=== PATIENT | female | born 1965 | race African-American/Black ===

== ENCOUNTER 2016-09-12 16:34 | Emergency (ER) | payer BC, OTHER ==
[2016-09-12 16:39] VITALS: BP 124/81; PULSE 82; TEMP 98.3; BMI 26.5
[2016-09-12] MEDS ORDERED: ALBUTEROL SO4 2.5/IPRATROPIUM 0.5 INH SOL 3 ML VIAL.NEB. NEB ONE ×2 (17:16→17:18)
--- NOTE | 2016-09-12 17:32 | PDOC ---
[id number] WORSENING PRODUCTIVE COUGH/CHEST PAIN Time Seen by Provider: 09/12/16 16:42 History Source: Patient Exam Limitations: No Limitations - History of Present Illness Initial Comments: 09/12/16 17:30 c/o cough for 2 weeks getting worse ran out of asthma inhaler. no shortness of breath c/o pain to middle of chest with coughing. no fever or chills. no sick contacts. Timing/Duration: reports: week (2) Severity: reports: mild Past History - Past Medical History Allergies/Adverse Reactions: Allergies Allergy/AdvReac Type Severity Reaction Status Date / Time No Known Drug Allergies Allergy Verified 09/12/16 16:36 Home Medications: Ambulatory Orders No Home Medications 0 dose .ROUTE UTDICT 11/05/12 Albuterol Sulfate Inhaler - [Ventolin Hfa Inhaler -] 1 - 2 inh PO Q4H #1 inhaler 09/12/16 Azithromycin [Zithromax 250mg Tablets -] 250 mg PO UTDICT #6 tab 09/12/16 Prednisone [Deltasone -] 40 mg PO DAILY #10 tablet 09/12/16 Anemia: No Asthma: Yes Cancer: No Cardiac Disorders: No CVA: No COPD: No CHF: No Dementia: No Diabetes: No GI Disorders: No Disorders: No HTN: No Hypercholesterolemia: No Liver Disease: No Seizures: No Thyroid Disease: No - Surgical History Abdominal Surgery: No Appendectomy: No Cardiac Surgery: No Cholecystectomy: No Lung Surgery: No Neurologic Surgery: No Orthopedic Surgery: No - Immunization History Td Vaccination: Yes Immunization Up to Date: Yes - Psycho/Social/Smoking Cessation Hx Anxiety: No Suicidal Ideation: No Smoking Status: No Smoking History: Never smoked Number of Cigarettes Smoked Daily: 0 Hx Alcohol Use: No Drug/Substance Use Hx: No Substance Use Type: None Hx Substance Use Treatment: No Respiratory Specific PMHX - Complaint Specific PMHX Angina: No Pneumonia: No Review of Systems - Review of Systems Able to Perform ROS?: Yes Is the patient limited Turkmen proficient: No Constitutional: No: Symptoms Reported Respiratory: Yes: Cough *Physical Exam - Vital Signs Last Vital Signs Temp Pulse Resp BP Pulse Ox 98.3 F 82 19 124/81 98 09/12/16 16:36 09/12/16 16:36 09/12/16 16:36 09/12/16 16:36 09/12/16 16:36 - Physical Exam General Appearance: Yes: Nourished, Appropriately Dressed HEENT: positive: EOMI, IRA, Normal ENT Inspection, TMs Normal, Pharynx Normal Neck: positive: Supple. negative: Tender Respiratory/Chest: positive: Decreased Breath Sounds. negative: Rhonchi, Wheezing Cardiovascular: positive: Regular Rhythm, Regular Rate Gastrointestinal/Abdominal: positive: Normal Bowel Sounds, Soft Musculoskeletal: positive: Normal Inspection Extremity: positive: Normal Capillary Refill, Normal Inspection, Normal Range of Motion Integumentary: positive: Normal Color, Dry, Warm Neurologic: positive: Fully Oriented, Alert, Normal Mood/Affect, Normal Response , Motor Strength 09/27 ED Treatment Course - RADIOLOGY Radiology Studies Ordered: Category Date Time Status CHEST PA & LAT [RAD] Stat Radiology 09/12/16 16:43 Taken - Medications Given in the ED: ED Medications Discontinued Medications Generic Name Dose Route Start Last Admin Trade Name Freq PRN Reason Stop Dose Admin Albuterol/Ipratropium 1 amp 09/12/16 17:16 09/12/16 17:27 Duoneb - NEB 09/12/16 17:17 1 amp ONCE ONE Administration Medical Decision Making - Medical Decision Making 09/12/16 17:32 cc: cough 2 weeks getting worse will give duoneb, cxr 09/12/16 18:53 pt improved after the duoneb inhaler cxr is negative for pneumonia follow up with PMD as discussed meds given as discussed *DC/Admit/Observation/Transfer Diagnosis at time of Disposition: Bronchitis - Discharge Dispostion Disposition: HOME Condition at time of disposition: Good - Prescriptions Prescriptions: Prednisone [Deltasone -] 40 mg PO DAILY #10 tablet Albuterol Sulfate Inhaler - [Ventolin Hfa Inhaler -] 1 - 2 inh PO Q4H #1 inhaler Azithromycin [Zithromax 250mg Tablets -] 250 mg PO UTDICT #6 tab - Referrals Referrals: Noé Morris MD [Primary Care Provider] - - Patient Instructions Printed Discharge Instructions: DI for Acute Bronchitis Additional Instructions: drink pleanty of fluids to stay hydrated take the medications as prescribed follow with your doctor in 3-4 days Return if any worsening symptoms
--- NOTE | 2016-09-16 12:18 | EKG ---
Test Reason : Blood Pressure : / mmHG Vent. Rate : 075 BPM Atrial Rate : 075 BPM P-R Int : 148 ms QRS Dur : 082 ms QT Int : 382 ms P-R-T Axes : 070 014 027 degrees QTc Int : 426 ms NORMAL SINUS RHYTHM POSSIBLE LEFT ATRIAL ENLARGEMENT BORDERLINE ECG WHEN COMPARED WITH ECG OF 20-FEB-2015 17:35, NO SIGNIFICANT CHANGE WAS FOUND Confirmed by TK HOLDEN MD ([id number]) on 09/16/2016 12:18:02 PM Referred By: Confirmed By:TK HOLDEN MD
== END 2016-09-12 17:42 | disposition home or self-care (01) ==
LOC: JERFT 16:34
PROC: 3E0F7GC Introduction of Other Therapeutic Substance into Respiratory Tract, Via Natural or Artificial Opening (ICD-10-PCS; principal; 2016-09-12)
DX: J40 Bronchitis, not specified as acute or chronic (principal)
CPT/HCPCS: 71020-TC; 93005; 93010; 99281-25

== ENCOUNTER 2016-11-05 16:32 | Emergency (ER) | payer BC, OTHER ==
[2016-11-05] MEDS ORDERED: DIPHTH,PERTUSS(ACELL),TET 0.5 ML DISP.SYRIN IM ONE (16:46)
[2016-11-05 16:47] VITALS: BP 134/84; PULSE 89; TEMP 98.1; BMI 28.3
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
[2016-11-05] MEDS ORDERED: SILVER SULFADIAZINE 1% TOP CREAM 50 GM JAR TP ONE (17:12)
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
== END 2016-11-05 17:48 | disposition home or self-care (01) ==
LOC: JERFT 16:32
PROC: 2W2QX4Z Dressing of Right Lower Leg using Bandage (ICD-10-PCS; principal; 2016-11-05)
PROC: 3E0234Z Introduction of Serum, Toxoid and Vaccine into Muscle, Percutaneous Approach (ICD-10-PCS; 2016-11-05)
DX: T24.231A Burn of second degree of right lower leg, initial encounter (principal); T31.0 Burns involving less than 10% of body surface; X19.XXXA Contact with other heat and hot substances, initial encounter; Y93.89 Activity, other specified; Y92.9 Unspecified place or not applicable
CPT/HCPCS: 90715; 99281-25

== ENCOUNTER 2017-09-15 16:46 | Emergency (ER) | payer BC, OTHER ==
--- NOTE | 2017-09-15 17:10 | PDOC ---
Rapid Medical Evaluation Time Seen by Provider: 09/15/17 17:06 Medical Evaluation: Allergies Allergy/AdvReac Type Severity Reaction Status Date / Time No Known Drug Allergies Allergy Verified 09/15/17 17:05 09/15/17 17:06 I have performed a brief in-person evaluation of this patient. The patient presents with a chief complaint of: L neck pain since yesterday, L hand tingling, dypsnea on exertion, "a little chest pain walking over here", epigastric discomfort, "feels like my food won't digest well", "i went to work today and everyone noticed something was wrong with me" Pertinent physical exam findings: limited flexion to neck I have ordered the following: ekg, labs The patient will proceed to the ED for further evaluation. Discharge Disposition - Diagnosis Shortness of breath - Referrals Referrals: Noé Morris MD [Primary Care Provider] - - Patient Instructions - Post Discharge Activity
[2017-09-15 17:12] VITALS: TEMP 98; BMI 31.2
[2017-09-15 18:02] LABS: BASO % 0.6 % (0-2.0); EOS % 2.8 % (0-4.5); HEMATOCRIT 37.1 % (32.4-45.2); HEMOGLOBIN 12.5 GM/dL (10.7-15.3); LYMPH % 26.7 % (8-40); MCH 27.3 pg (25.7-33.7); MCHC 33.7 g/dl (32.0-36.0); MONO % 9.8 % (3.8-10.2); NEUT % 60.1 % (42.8-82.8); PLATELET COUNT 339 K/MM3 (134-434); RBC 4.58 M/mm3 (3.60-5.2); RDW 15.4 % (11.6-15.6); WHITE BLOOD COUNT 6.7 K/mm3 (4.0-10.0)
[2017-09-15 18:35] LABS: INR 1.04 (0.82-1.09); PROTHROMBIN TIME (PATIENT) 11.7 SEC (9.7-13.0)
[2017-09-15 18:37] LABS: ALBUMIN 3.7 g/dl (3.4-5.0); ANION GAP 5 (8-16); BLOOD UREA NITROGEN 22 mg/dL (7-18); CALCIUM 9.1 mg/dL (8.5-10.1); CHLORIDE 108 mmol/L (98-107); CO2 29 mmol/L (21-32); CREATININE 0.8 mg/dL (0.55-1.02); GLUCOSE,RANDOM 91 mg/dL (74-106); POTASSIUM 3.9 mmol/L (3.5-5.1); SGOT/AST 17 U/L (15-37); SGPT/ALT 23 U/L (12-78); SODIUM 142 mmol/L (136-145)
[2017-09-15 18:41] LABS: ALK PHOS 92 U/L (45-117); BILIRUBIN,TOTAL 0.2 mg/dL (0.2-1.0); TOT PROT 7.7 g/dl (6.4-8.2)
[2017-09-15 18:43] LABS: MAGNESIUM 2.1 mg/dL (1.8-2.4)
[2017-09-15 18:44] LABS: N-TERMINAL BNP 55.24 pg/ml (5-125)
[2017-09-15] MEDS ORDERED: ASPIRIN 81 MG CHEWABLE TABLETS PO ONE (18:57)
--- NOTE | 2017-09-15 19:07 | PDOC ---
History of Present Illness - General Chief Complaint: Chest Pain Stated Complaint: Neck problem Time Seen by Provider: 09/15/17 17:06 History Source: Patient Exam Limitations: No Limitations - History of Present Illness Initial Comments: 09/15/17 19:00 51-year-old female history of lower back disc disease here today complaining of left upper extremity tingling and upper neck pain. Patient denies any new weakness was coming to be seen for the arm and did notice that she developed some chest pain while walking. Denies any associated shortness breath no nausea vomiting or diaphoresis. Unsure if she has had a previous cardiac workup states she may have had some tests done 2 years ago unsure what type. No family history of heart disease patient does not have a history of hypertension diabetes no tobacco use upper extremity pain and tingling she has had for several days and is worse with certain movements and lifting his pain is since resolved no leg swelling no history of DVT or PE she has had several negative ultrasound Dopplers in the past Past History - Past Medical History Allergies/Adverse Reactions: Allergies Allergy/AdvReac Type Severity Reaction Status Date / Time No Known Drug Allergies Allergy Verified 09/15/17 17:05 Home Medications: Ambulatory Orders NK [No Known Home Medication] 11/05/16 Anemia: No Asthma: Yes Cancer: No Cardiac Disorders: No CVA: No COPD: No CHF: No DVT: No Dementia: No Diabetes: No GI Disorders: No Disorders: No HTN: No Hypercholesterolemia: No Liver Disease: No Seizures: No Thyroid Disease: No Other medical history: back pain - Surgical History Abdominal Surgery: No Appendectomy: No Cardiac Surgery: No Cholecystectomy: No Lung Surgery: No Neurologic Surgery: No Orthopedic Surgery: No - Immunization History Td Vaccination: Yes Immunization Up to Date: Yes - Suicide/Smoking/Psychosocial Hx Smoking Status: No Smoking History: Never smoked Number of Cigarettes Smoked Daily: 0 Information on smoking cessation initiated: No Hx Alcohol Use: No Drug/Substance Use Hx: No Substance Use Type: None Hx Substance Use Treatment: No Review of Systems - Review of Systems Constitutional: No: Chills, Diaphoresis HEENTM: No: Eye Pain, Blurred Vision Respiratory: No: Cough, Orthopnea Cardiac (ROS): Yes: Chest Pain ABD/GI: No: See HPI, Abdominal Distended : No: Burning, Dysuria Musculoskeletal: No: Back Pain, Gout, Joint Pain, Muscle Pain, Muscle Weakness Neurological: Yes: Paresthesia All Other Systems: Reviewed and Negative *Physical Exam - Vital Signs Last Vital Signs Temp Pulse Resp BP Pulse Ox 98.0 F 91 H 18 132/86 100 09/15/17 17:06 09/15/17 17:06 09/15/17 17:06 09/15/17 17:06 09/15/17 17:06 - Physical Exam General Appearance: Yes: Appropriately Dressed Neck: positive: Trachea midline Respiratory/Chest: positive: Lungs Clear, Normal Breath Sounds Cardiovascular: positive: Regular Rhythm, Regular Rate, S1, S2 Gastrointestinal/Abdominal: positive: Normal Bowel Sounds, Flat, Soft. negative : Tender Musculoskeletal: positive: Normal Inspection. negative: CVA Tenderness Extremity: positive: Normal Capillary Refill, Normal Inspection, Normal Range of Motion Integumentary: positive: Normal Color, Dry, Warm Neurologic: positive: Fully Oriented, Alert, Normal Mood/Affect, Other (left trapezial spasm. ttp. no midline spinal tenderness. distally med/ rad, uln n. intact. upper ext strength and sensation intact. ) ED Treatment Course - LABORATORY CBC & Chemistry Diagram: 09/15/17 17:55 09/15/17 17:55 - ADDITIONAL ORDERS Additional order review: Laboratory Results 09/15/17 09/15/17 09/15/17 17:55 17:55 17:55 PT with INR 11.70 INR 1.04 Sodium 142 Potassium 3.9 Chloride 108 H Carbon Dioxide 29 Anion Gap 5 L BUN 22 H Creatinine 0.8 Creat Clearance w eGFR > 60 Random Glucose 91 Calcium 9.1 Magnesium 2.1 Total Bilirubin 0.2 D AST 17 ALT 23 Alkaline Phosphatase 92 Creatine Kinase 114 Troponin I < 0.02 B-Natriuretic Peptide 55.24 Total Protein 7.7 Albumin 3.7 09/15/17 17:55 RBC 4.58 MCV 81.0 MCHC 33.7 RDW 15.4 MPV 7.0 L D Neutrophils % 60.1 Lymphocytes % 26.7 D Monocytes % 9.8 Eosinophils % 2.8 Basophils % 0.6 Medical Decision Making - Medical Decision Making 09/15/17 19:04 51 yo F with h/o lumbar disc disease here today c/o left upper arm, neck tingling and spasm. denies new weakness or numbness. did have chest pain en route to be evaluated. low risk for cardiac disease ( no fam hx, no h/o htn dm or hld. no tabacco use) on exam pt wiht reproducible trapezial muscle spasm and tenderness. upper ext nuero exam intact. differential msk trapezial spasm, infection such as pna as cause of chest pain. acs less likley. will send trop ekg. if negative consider short observation with four hr trop and dc with close followup. recommend asa for cardiac prophylaxis, muscle relaxers for trapezial spasm. cxr. *DC/Admit/Observation/Transfer Diagnosis at time of Disposition: Muscle spasm, Chest pain - Referrals Referrals: Noé Morris MD [Primary Care Provider] - - Patient Instructions Printed Discharge Instructions: DI for Atypical Chest Pain - Post Discharge Activity
[2017-09-15] MEDS ORDERED: CYCLOBENZAPRINE HCL 10 MG TABLET (FP) PO ONE (20:27)
[2017-09-15] MEDS ORDERED: CYCLOBENZAPRINE HCL 10 MG TABLET (FP) ONE (20:49)
[2017-09-15] MEDS ORDERED: ASPIRIN 81 MG CHEWABLE TABLETS ONE (20:49)
--- NOTE | 2017-09-15 23:08 | PDOC ---
*Physical Exam - Vital Signs Last Vital Signs Temp Pulse Resp BP Pulse Ox 98.0 F 91 H 18 132/86 100 09/15/17 17:06 09/15/17 17:06 09/15/17 17:06 09/15/17 17:06 09/15/17 17:06 ED Treatment Course - LABORATORY CBC & Chemistry Diagram: 09/15/17 17:55 09/15/17 17:55 - ADDITIONAL ORDERS Additional order review: Laboratory Results 09/15/17 09/15/17 09/15/17 17:55 17:55 17:55 PT with INR 11.70 INR 1.04 Sodium 142 Potassium 3.9 Chloride 108 H Carbon Dioxide 29 Anion Gap 5 L BUN 22 H Creatinine 0.8 Creat Clearance w eGFR > 60 Random Glucose 91 Calcium 9.1 Magnesium 2.1 Total Bilirubin 0.2 D AST 17 ALT 23 Alkaline Phosphatase 92 Creatine Kinase 114 Troponin I < 0.02 B-Natriuretic Peptide 55.24 Total Protein 7.7 Albumin 3.7 09/15/17 17:55 RBC 4.58 MCV 81.0 MCHC 33.7 RDW 15.4 MPV 7.0 L D Neutrophils % 60.1 Lymphocytes % 26.7 D Monocytes % 9.8 Eosinophils % 2.8 Basophils % 0.6 - Medications Given in the ED: ED Medications Discontinued Medications Generic Name Dose Route Start Last Admin Trade Name Syedq PRN Reason Stop Dose Admin Aspirin 162 mg 09/15/17 18:57 09/15/17 21:00 Asa - PO 09/15/17 18:58 162 mg ONCE ONE Administration Cyclobenzaprine HCl 10 mg 09/15/17 20:27 09/15/17 21:00 Flexeril - PO 09/15/17 20:28 10 mg ONCE ONE Administration Medical Decision Making - Medical Decision Making 09/15/17 23:08 pt signed out to me by dr. Weeks pt presented with complaint of L neck pain with L arm tingling starting this morning, but also had brief episode of cp, obatined blood work that showed neg x 2 trops. no current cpt. L neck pain improved. will dc the pt with pmd fu and antispasmotic/nsaids return precautions were discussed I discussed the physical exam findings, ancillary test results and final diagnoses with the patient. I answered all of the patient's questions. The patient was satisfied with the care received and felt comfortable with the discharge plan and treatment plan. The patient will call their primary care physician within 24 hours to arrange follow-up and will return to the Emergency Department with any new, persistent or worsening symptoms. *DC/Admit/Observation/Transfer Diagnosis at time of Disposition: Cervical radicular pain, Muscle spasm Chest pain Qualifiers: Chest pain type: unspecified Qualified Code(s): R07.9 - Chest pain, unspecified - Discharge Dispostion Disposition: HOME Condition at time of disposition: Improved Admit: No - Referrals Referrals: oNé Morris MD [Primary Care Provider] - - Patient Instructions Printed Discharge Instructions: DI for Atypical Chest Pain, DI for Back Spasm, DI for Cervical Radiculopathy Additional Instructions: Return to the emergency department immediately with ANY new, persistent or worsening symptoms. Take motrin/tylenol as eneded for pain and muscle ralaxant You MUST call and follow up with your doctor in 2-3 days for further evaluation of your symptoms. Results were discussed with you. Please make sure your doctor reviews the results of your emergency evaluation. Print Language: MAURITANIAN - Post Discharge Activity Forms/Work/School Notes: Back to Work
[2017-09-15 23:56] VITALS: BP 117/74; PULSE 76
--- NOTE | 2017-09-16 10:17 | EKG ---
Test Reason : Blood Pressure : / mmHG Vent. Rate : 089 BPM Atrial Rate : 089 BPM P-R Int : 138 ms QRS Dur : 080 ms QT Int : 370 ms P-R-T Axes : 066 -04 033 degrees QTc Int : 450 ms NORMAL SINUS RHYTHM NORMAL ECG WHEN COMPARED WITH ECG OF 12-SEP-2016 16:44, NO SIGNIFICANT CHANGE WAS FOUND Confirmed by MD JOSHUA, DONNA ([id number]) on 09/16/2017 10:17:14 AM Referred By: Confirmed By:DONNA LEWIS MD
== END 2017-09-16 00:14 | disposition home or self-care (01) ==
LOC: JER 16:46
DX: M62.838 Other muscle spasm (principal); R07.89 Other chest pain
CPT/HCPCS: 36415; 71046-TC-FY; 80053; 82550; 83735; 83880; 84484; 85025; 85610; 93005; 93010; 99284-25

== ENCOUNTER 2017-12-17 10:06 | Day surgery (SDC) | payer BC ==
[2017-12-17] MEDS ORDERED: PROPOFOL 20 ML ONE ×2 (10:13→11:01)
[2017-12-17] MEDS ORDERED: LIDOCAINE HCL/PF 2% SDV 5ML VIAL ONE (10:13)
[2017-12-17 10:52] VITALS: BMI 30.2
[2017-12-17 13:13] VITALS: TEMP 97.6
[2017-12-17 13:30] VITALS: BP 112/68; PULSE 71
--- NOTE | 2017-12-18 12:31 | PATH ---
Surgical Pathology Report Patient Name: JODY SANTOS [facility]. Rec. #: [id number] /Age/Gender: 1965 (Age: 52) / F Account: [id number] Location: [facility] Taken: 12/17/2017 Received: 12/17/2017 Reported: 12/18/2017 Physicians: Danielle Copeland M.D. Specimen(s) Received A: SECOND PORTION DUODENUM BIOPSY B: BX ANTRUM C: BX GE JUNCTION D: MID ESOPHAGUS BIOPSY Clinical History Dysphagia, abdominal pain Postoperative diagnosis: Gastritis Final Diagnosis A. DUODENUM, SECOND PORTION, BIOPSY: DUODENAL MUCOSA WITH MILD ACUTE AND CHRONIC DUODENITIS. B. STOMACH, ANTRUM, BIOPSY: GASTRIC ANTRAL MUCOSA WITH MILD CHRONIC GASTRITIS. IMMUNOHISTOCHEMICAL STAIN FOR H. PYLORI IS NEGATIVE. C. GE JUNCTION, BIOPSY: GASTRIC OXYNTIC MUCOSA WITH MILD CHRONIC GASTRITIS. NO HELICOBACTER ORGANISMS IDENTIFIED. NO SQUAMOUS MUCOSA, INTESTINAL METAPLASIA, OR DYSPLASIA IDENTIFIED D. MID ESOPHAGUS, BIOPSY: SQUAMOUS MUCOSA WITHOUT SIGNIFICANT PATHOLOGIC FINDINGS. Electronically Signed Danielle Jean M.D. Gross Description A. Received in formalin, labeled "biopsy second portion of duodenum" are 2 keith, irregular portions of soft tissue averaging 0.3 cm. in greatest dimension. The specimens are submitted in toto in one cassette. B. Received in formalin, labeled "antrum biopsy" is a keith, irregular portion of soft tissue measuring 0.3 cm. in greatest dimension. The specimen is submitted in toto in one cassette. C. Received in formalin, labeled "GE junction biopsy" is a keith, irregular portion of soft tissue measuring 0.3 cm. in greatest dimension. The specimen is submitted in toto in one cassette. D. Received in formalin, labeled "mid esophagus biopsy" is a keith, irregular portion of soft tissue measuring 0.2 cm. in greatest dimension. The specimen is submitted in toto in one cassette. 12/17/201712/17/2017
== END 2017-12-17 13:40 | disposition home or self-care (01) ==
LOC: FASU-ENDO 10:06
PROVIDERS: ATTEND Internal Medicine Gastroenterology
PROC: 0DB68ZX Excision of Stomach, Via Natural or Artificial Opening Endoscopic, Diagnostic (ICD-10-PCS; 2017-12-17)
PROC: 0DB28ZX Excision of Middle Esophagus, Via Natural or Artificial Opening Endoscopic, Diagnostic (ICD-10-PCS; 2017-12-17)
PROC: 0DB48ZX Excision of Esophagogastric Junction, Via Natural or Artificial Opening Endoscopic, Diagnostic (ICD-10-PCS; 2017-12-17)
PROC: 0DB98ZX Excision of Duodenum, Via Natural or Artificial Opening Endoscopic, Diagnostic (ICD-10-PCS; principal; 2017-12-17 12:36)
DX: K29.80 Duodenitis without bleeding (principal); K29.50 Unspecified chronic gastritis without bleeding; R10.13 Epigastric pain; R13.10 Dysphagia, unspecified; K44.9 Diaphragmatic hernia without obstruction or gangrene
CPT/HCPCS: 88305-TC; 88342-TC

== ENCOUNTER 2018-10-11 11:46 | Emergency (ER) | payer BC ==
[2018-10-11 11:57] VITALS: TEMP 98.1; BMI 28.0
[2018-10-11] MEDS ORDERED: FAMOTIDINE 20 MG/50 ML IVPB 20 MG in PREMIX 50 IVPB ONE (12:48)
[2018-10-11] MEDS ORDERED: MAG HYDROX/AL HYDROX/SIMETH -MYLANTA- ORAL SUSPENSION PO ONE (12:48)
--- NOTE | 2018-10-11 12:48 | PDOC ---
Attending Attestation - Resident Resident Name: Damian Young - ED Attending Attestation I have performed the following: I have examined & evaluated the patient, The case was reviewed & discussed with the resident, I agree w/resident's findings & plan, Exceptions are as noted - HPI HPI: 10/11/18 12:48 53y F hx of HL presents with a 5 complaint of chest pain and neck pain. Pt states the cp started first and was gradaul - pt notse it was a sharp pain
[2018-10-11] MEDS ORDERED: MAG HYDROX/AL HYDROX/SIMETH 30 ML UNIT-DOSE CUP ONE (12:51)
[2018-10-11] MEDS ORDERED: FAMOTIDINE 20 MG/50 ML IVPB 20 MG/50 ML MG IVPB ONE (12:51)
[2018-10-11 12:55] LABS: BASO % 1.3 % (0-2.0); HEMATOCRIT 34.3 % (32.4-45.2); HEMOGLOBIN 11.1 GM/dl (10.7-15.3); LYMPH % 21.5 % (8-40); MCH 26.4 pg (25.7-33.7); MCHC 32.3 g/dl (32.0-36.0); MEAN CELL VOLUME 81.7 fl (80-96); MEAN PLT VOLUME 7.9 fl (7.5-11.1); MONO % 9.8 % (3.8-10.2); NEUT % 60.4 % (42.8-82.8); PLATELET COUNT 390 K/MM3 (134-434); RDW 15.1 % (11.6-15.6); WHITE BLOOD COUNT 5.7 K/mm3 (4.0-10.8)
[2018-10-11 13:05] LABS: ALBUMIN 3.7 g/dl (3.4-5.0); BILIRUBIN,TOTAL 0.4 mg/dl (0.2-1); CALCIUM 9.4 mg/dl (8.5-10); CREATININE 0.7 mg/dl (0.55-1.3); POTASSIUM 4.5 mmol/L (3.5-5.1)
--- NOTE | 2018-10-11 13:09 | PDOC ---
History of Present Illness - General History Source: Patient Exam Limitations: No Limitations - History of Present Illness Initial Comments: 10/11/18 13:06 53y F hx of HL presents with a 5 complaint of chest pain and neck pain. Pt states the cp started first and was gradaul - pt notes the pain is sharp, is worse when she takes a deep breath, and seemed to be worse at night - pt notse that the past 2-3 days she also developed mild anterior throat pain that also seems to be worse when she takes a deep breath. Pt endorses some palpitations. No associated nausea/vomtiing, diaphoresis, hemoptysis, back pain, abd pain, diarrhea, melena, bpr, leg swelling or calf pain,. numbness/tingling/weakness, headache, dizziness. PMD Dr. Morris Family hx: mom dm, breast ca, father: of ca, no family hx of cardiac disease soc: no etoh abuse, smoking, recreational drug use <Jeremie Holt - Last Filed: 10/11/18 19:08> <Emerson Orellana - Last Filed: 10/12/18 05:14> - General Chief Complaint: Chest Pain Stated Complaint: CHEST PAIN Time Seen by Provider: 10/11/18 11:58 Past History - Past Medical History Anemia: No Asthma: Yes Cancer: No Cardiac Disorders: No CVA: No COPD: No CHF: No DVT: No Dementia: No Diabetes: No GI Disorders: No Disorders: No HTN: No Hypercholesterolemia: No Liver Disease: No Seizures: No Thyroid Disease: No - Surgical History Abdominal Surgery: No Appendectomy: No Cardiac Surgery: No Cholecystectomy: No Lung Surgery: No Neurologic Surgery: No Orthopedic Surgery: No - Immunization History Td Vaccination: Yes Immunization Up to Date: Yes - Suicide/Smoking/Psychosocial Hx Smoking Status: No Smoking History: Never smoked Have you smoked in the past 12 months: No Number of Cigarettes Smoked Daily: 0 Hx Alcohol Use: No Drug/Substance Use Hx: No Substance Use Type: None Hx Substance Use Treatment: No <Jeremie Holt - Last Filed: 10/11/18 19:08> <Emerson Orellana - Last Filed: 10/12/18 05:14> - Past Medical History Allergies/Adverse Reactions: Allergies Allergy/AdvReac Type Severity Reaction Status Date / Time No Known Drug Allergies Allergy Verified 10/11/18 11:48 Home Medications: Ambulatory Orders Pantoprazole Sodium [Protonix -] 40 mg PO BID #14 tablet.ec 10/11/18 Review of Systems - Review of Systems Able to Perform ROS?: Yes Comments:: 10/11/18 13:07 Constitutional - no reported Fever, Chills, HEENT: +throat/neck pain no reported vision changes Respiratory: no reported cough, sob, hemoptysis Cardiac: +chest pain, no reported palpitations, light headedness, leg swelling Abd/GI: no reported abd pain, nausea, vomiting, blood per rectum, melena, diarrhea : no reported dysuria, frequency, discharge Musculskelatal - no reported back pain, joint swelling skin - no reported bruising, erythema, rash neurological: no reported headache, numbness, focal weakness, tingling, ataxia, hematologic: no reported easy bruising, easy bleeding <Yanet,Jeremie - Last Filed: 10/11/18 19:08> *Physical Exam - Vital Signs Last Vital Signs Temp Pulse Resp BP Pulse Ox 98.1 F 64 17 120/68 97 10/11/18 11:47 10/11/18 13:02 10/11/18 13:02 10/11/18 13:02 10/11/18 13:02 - Physical Exam Comments: 10/11/18 13:08 GENERAL: The patient is awake, alert, and fully oriented, Nontoxic - in no acute distress. HEAD: Normocephalic, atraumatic. EYES: extraocular movements intact, sclera anicteric, conjunctiva clear. ENT: Normal voice, Moist mucous membranes, posterior pharynx symmetric, normal without erythema or exudates NECK: Normal range of motion, supple LUNGS: Breath sounds equal, clear to auscultation bilaterally. No wheezes, no rhonchi, no rales. HEART: Regular rate and rhythm, normal S1 and S2 without murmur, rub or gallop. ABDOMEN: Soft, nontender, No guarding, no rebound. . No CVA tenderness EXTREMITIES: Normal range of motion, no edema. No calf tenderness, negative Homans bilaterally NEUROLOGICAL: No facial assymetry, Normal speech, PSYCH: Normal mood, normal affect. SKIN: Warm, Dry, normal turgor, <Yanet,Jeremie - Last Filed: 10/11/18 19:08> - Vital Signs Last Vital Signs Temp Pulse Resp BP Pulse Ox 98.1 F 68 17 126/70 99 10/11/18 16:36 10/11/18 18:22 10/11/18 18:22 10/11/18 18:22 10/11/18 18:22 <Emerson Orellana - Last Filed: 10/12/18 05:14> Heart Score/ECG Review - ECG Impressions Comment:: 10/11/18 13:09 Twelve-lead EKG was performed and reviewed by me. There is normal sinus rhythm with a normal rate. Rate of 71 The axis is normal. The intervals are normal. There is normal R wave progression There are no ST or T wave abnormalities. Impression: Normal twelve-lead EKG <Jeremie Holt - Last Filed: 10/11/18 19:08> ED Treatment Course - LABORATORY CBC & Chemistry Diagram: 10/11/18 12:40 10/11/18 12:40 - ADDITIONAL ORDERS Additional order review: 10/11/18 12:40 RBC 4.20 MCV 81.7 MCHC 32.3 RDW 15.1 MPV 7.9 Neutrophils % 60.4 Lymphocytes % 21.5 Monocytes % 9.8 Eosinophils % 7.0 H Basophils % 1.3 - RADIOLOGY Radiology Studies Ordered: Category Date Time Status CHEST PA & LAT [RAD] Stat Radiology 10/11/18 12:49 Ordered - Medications Given in the ED: ED Medications Discontinued Medications Generic Name Dose Route Start Last Admin Trade Name Freq PRN Reason Stop Dose Admin Al Hydroxide/Mg Hydroxide 30 ml 10/11/18 12:48 10/11/18 13:02 Mylanta Suspension - PO 10/11/18 12:49 30 ml ONCE ONE Administration <Jeremie Holt - Last Filed: 10/11/18 19:08> - LABORATORY CBC & Chemistry Diagram: 10/11/18 12:40 10/11/18 12:40 - ADDITIONAL ORDERS Additional order review: Laboratory Results 10/11/18 10/11/18 10/11/18 18:07 18:07 12:49 D-Dimer Sodium Potassium Chloride Carbon Dioxide Anion Gap BUN Creatinine Est GFR (CKD-EPI)AfAm Est GFR (CKD-EPI)NonAf Random Glucose Calcium Total Bilirubin AST ALT Alkaline Phosphatase Creatine Kinase 77 Troponin I < 0.03 Total Protein Albumin Lipase Urine Color Antonia Urine Appearance Clear Urine pH 7.0 Urine Protein Negative Urine Glucose (UA) Negative Urine Ketones Negative Urine Blood Negative Urine Nitrite Negative Urine Bilirubin Negative Urine Urobilinogen 0.2 Ur Leukocyte Esterase Negative 10/11/18 10/11/18 10/11/18 12:49 12:41 12:41 D-Dimer Sodium Potassium Chloride Carbon Dioxide Anion Gap BUN Creatinine Est GFR (CKD-EPI)AfAm Est GFR (CKD-EPI)NonAf Random Glucose Calcium Total Bilirubin AST ALT Alkaline Phosphatase Creatine Kinase 84 Troponin I < 0.03 Total Protein Albumin Lipase 240 Urine Color Urine Appearance Urine pH Urine Protein Urine Glucose (UA) Urine Ketones Urine Blood Urine Nitrite Urine Bilirubin Urine Urobilinogen Ur Leukocyte Esterase 10/11/18 10/11/18 12:40 12:30 D-Dimer 807 H Sodium 141 Potassium 4.5 Chloride 104 Carbon Dioxide 27 Anion Gap 10 BUN 15 Creatinine 0.7 Est GFR (CKD-EPI)AfAm 113.84 Est GFR (CKD-EPI)NonAf 98.23 Random Glucose 98 Calcium 9.4 Total Bilirubin 0.4 AST 18 ALT 14 Alkaline Phosphatase 72 Creatine Kinase Troponin I Total Protein 7.0 Albumin 3.7 Lipase Urine Color Urine Appearance Urine pH Urine Protein Urine Glucose (UA) Urine Ketones Urine Blood Urine Nitrite Urine Bilirubin Urine Urobilinogen Ur Leukocyte Esterase 10/11/18 12:40 RBC 4.20 MCV 81.7 MCHC 32.3 RDW 15.1 MPV 7.9 Neutrophils % 60.4 Lymphocytes % 21.5 Monocytes % 9.8 Eosinophils % 7.0 H Basophils % 1.3 - Medications Given in the ED: ED Medications Discontinued Medications Generic Name Dose Route Start Last Admin Trade Name Freq PRN Reason Stop Dose Admin Acetaminophen 650 mg 10/11/18 14:21 10/11/18 14:41 Tylenol - PO 10/11/18 14:22 650 mg ONCE ONE Administration Al Hydroxide/Mg Hydroxide 30 ml 10/11/18 12:48 10/11/18 13:02 Mylanta Suspension - PO 10/11/18 12:49 30 ml ONCE ONE Administration Aspirin 324 mg 10/11/18 14:21 10/11/18 14:41 Asa - PO 10/11/18 14:22 324 mg ONCE ONE Administration Famotidine/Sodium Chloride 20 50 mls @ 100 mls/hr 10/11/18 12:48 10/11/18 13: 02 mg/ Miscellaneous IVPB 10/11/18 13:17 100 mls/hr ONCE ONE Administration Sodium Chloride 1,000 mls @ 1,000 mls/hr 10/11/18 18:24 10/11/18 18:25 Normal Saline - IV 10/11/18 19:23 1,000 mls/hr .Q1H ONE Administration <Emerson Orellana - Last Filed: 10/12/18 05:14> Medical Decision Making - Medical Decision Making 10/11/18 13:09 Differential for the patient's symptoms includes ACS, gastritis, pneumothorax, consider possible pulmonary embolism, Will check CBC, CMP, lipase, EKG, chest x-ray Consider Maalox for symptomatic relief Will reassess 10/11/18 14:21 labs reviwed ddimer elvated to 800 cxr neg for acute cardiopulmoanry process will obtain CTA to pe <Jeremie Holt - Last Filed: 10/11/18 19:08> - Medical Decision Making CTA nl except small nodule d/w pt (non smoker) trop - x 2 likely GI etiology PPI pcp fu to continue [place] 10/12/18 05:13 <Emerson Orellana - Last Filed: 10/12/18 05:14> *DC/Admit/Observation/Transfer - Discharge Dispostion Decision to Admit order: No <Jeremie Holt - Last Filed: 10/11/18 19:08> <Emerson Orellana - Last Filed: 10/12/18 05:14> Diagnosis at time of Disposition: Atypical chest pain - Discharge Dispostion Condition at time of disposition: Stable - Prescriptions Prescriptions: Pantoprazole Sodium [Protonix -] 40 mg PO BID #14 tablet.ec - Referrals Referrals: Noé Morris MD [Primary Care Provider] - - Patient Instructions Printed Discharge Instructions: DI for Gastroesophageal Reflux Disease (GERD), DI for Atypical Chest Pain, GERD Diet Additional Instructions: You have a 5mm lung nodule in your left lower lung. Please let your doctor know Return to the emergency department immediately with ANY new, persistent or worsening symptoms including worsening chest pain, shortness of breath or other concerns. I suspect your symptoms may be due to acid reflux. Please eat several hours prior to sleeping. Avoid spicy foods, acidic foods, caffeine. Take the protonix and maalox as prescribed. You MUST call and follow up with your doctor in 2-3 days for further evaluation of your symptoms. Results were discussed with you. Please make sure your doctor reviews the results of your emergency evaluation. Print Language: PERSIAN - Post Discharge Activity
[2018-10-11] MEDS ORDERED: ASPIRIN 81 MG CHEWABLE TABLETS PO ONE (14:21)
[2018-10-11] MEDS ORDERED: ACETAMINOPHEN 325 MG TABLET (FP) PO ONE (14:21)
[2018-10-11] MEDS ORDERED: ASPIRIN 81 MG CHEWABLE TABLETS ONE (14:39)
[2018-10-11] MEDS ORDERED: ACETAMINOPHEN 325 MG TABLET (FP) ONE (14:39)
[2018-10-11 18:22] VITALS: BP 126/70; PULSE 68
[2018-10-11] MEDS ORDERED: SODIUM CHLORIDE 1,000 ML IV ONE (18:24)
--- NOTE | 2018-10-12 11:07 | EKG ---
Test Reason : Blood Pressure : / mmHG Vent. Rate : 071 BPM Atrial Rate : 071 BPM P-R Int : 152 ms QRS Dur : 076 ms QT Int : 394 ms P-R-T Axes : 069 007 012 degrees QTc Int : 428 ms NORMAL SINUS RHYTHM POSSIBLE LEFT ATRIAL ENLARGEMENT BORDERLINE ECG WHEN COMPARED WITH ECG OF 15-SEP-2017 17:17, NO SIGNIFICANT CHANGE WAS FOUND Confirmed by KIP COHN MD ([id number]) on 10/12/2018 11:06:46 AM Referred By: MARÍA WARNER Confirmed By:KIP COHN MD
== END 2018-10-11 20:53 | disposition home or self-care (01) ==
LOC: FER 11:46
PROC: 3E033GC Introduction of Other Therapeutic Substance into Peripheral Vein, Percutaneous Approach (ICD-10-PCS; principal; 2018-10-11)
PROC: 3E0337Z Introduction of Electrolytic and Water Balance Substance into Peripheral Vein, Percutaneous Approach (ICD-10-PCS; 2018-10-11)
DX: R07.89 Other chest pain (principal)
CPT/HCPCS: 36415; 71046-TC-FY; 71275-TC; 80053; 81003; 82550; 83690; 84484; 85025; 85379; 93005; 99284-25; J7030

== ENCOUNTER → 2019-11-17 | Day surgery (SDC) | payer BC ==
[2019-11-16 08:56] VITALS: BMI 28.5
[~2019-11-17] MED LIST: BUPIVACAINE HCL/PF 0.5% (5 MG/ML) 30 ML VIAL IJ ONE; LACTATED RINGERS SOLUTION 1,000 ML IV SCH; LIDOCAINE HCL 1%, 10 MG/ML (20ML VIAL) ONE; LIDOCAINE HCL 1%, 10 MG/ML (20ML VIAL) PNB ONE; MIDAZOLAM HCL 2 MG/2 ML SINGLE DOSE VIAL ONE; ceFAZolin SODIUM 1 GM VIAL IVPB ONE
[2019-11-17 16:29] VITALS: PULSE 66
[2019-11-17 17:10] VITALS: BP 130/80; TEMP 96
== END | disposition home or self-care (01) ==
LOC: JASU-SURG 10:30
PROVIDERS: ATTEND Orthopaedic Surgery
PROC: 0LN80ZZ Release Left Hand Tendon, Open Approach (ICD-10-PCS; principal; 2019-11-17 12:00)
DX: M65.352 Trigger finger, left little finger (principal)

== ENCOUNTER → 2023-02-27 | Day surgery (SDC) | payer BC | END | disposition home or self-care (01) | LOC: FMAMMOTONE 12:00 | PROVIDERS: ATTEND Specialist | PROC: 0HBU3ZX Excision of Left Breast, Percutaneous Approach, Diagnostic (ICD-10-PCS; principal; 2023-02-27) | DX: Z53.8 Procedure and treatment not carried out for other reasons (principal); R92.0 Mammographic microcalcification found on diagnostic imaging of breast | CPT/HCPCS: 19081 ==

== ENCOUNTER 2023-09-26 16:25 | Emergency (ER) | payer BC, OTHER ==
[2023-09-26 16:36] VITALS: BP 169/67; PULSE 100; RESP 18; TEMP 98.5; BMI 28.1
[2023-09-26] MEDS ORDERED: guaiFENesin/D-METHORPHAN HB 10 ML UNIT-DOSE CUPS ONE (17:43)
[2023-09-26] MEDS ORDERED: predniSONE 20 MG TABLET (UD) ONE (17:43)
[2023-09-26] MEDS ORDERED: ALBUTEROL SO4 HFA INHALER IH ONE (17:43)
[2023-09-26] MEDS: ALBUTEROL SO4 HFA INHALER IH ONE (17:45)
[2023-09-26] MEDS: guaiFENesin/D-METHORPHAN HB 10 ML UNIT-DOSE CUPS PO ONE (17:45)
[2023-09-26] MEDS: predniSONE 20 MG TABLET (UD) PO ONE (17:45)
== END 2023-09-26 17:51 | disposition home or self-care (01) ==
LOC: JERFT 16:25
PROC: 3E0F7GC Introduction of Other Therapeutic Substance into Respiratory Tract, Via Natural or Artificial Opening (ICD-10-PCS; principal; 2023-09-26)
DX: R05.9 Cough, unspecified (principal); R50.9 Fever, unspecified; J40 Bronchitis, not specified as acute or chronic
CPT/HCPCS: 71046-TC-FY; 99283-25